=== PATIENT | female | born 1940 | race Caucasian/White ===

== ENCOUNTER 2018-07-28 19:22 | Emergency (ER) | payer OTHER ==
[2018-07-28 19:27] VITALS: BP 149/83; PULSE 86; TEMP 97.8; BMI 18.9
--- NOTE | 2018-07-28 19:27 | PDOC ---
History of Present Illness - General History Source: Patient, Family Exam Limitations: No Limitations - History of Present Illness Initial Comments: A portion of this note was documented by scribe services under my direction. I have reviewed the details of the note, within reason, and agree with the documentation. The case summary and management plan written by me. 07/28/18 20:41 Assessment plan: This is an 77-year-old female brought in by her daughter for evaluation status post fall. Patient had a mechanical trip and fall landing on her face. Patient had a head CT and facial bone CT that were negative for any acute pathology. However patient does have a small chip to her right front tooth as well as her front teeth are loose. Patient otherwise has a small abrasion on her right knee but no bony tenderness. Patient has some mild bony tenderness of her left wrist but x-rays negative for any acute pathology/fracture Family/daughter given copies of the head CT facial bone CT Patient discharged told to follow-up with her primary care doctor and a dentist.. Patient told she can take Tylenol or Motrin as needed for pain <Michael Valverde I - Last Filed: 07/28/18 20:40> - General History Source: Patient, Family Exam Limitations: No Limitations - History of Present Illness Initial Comments: 07/28/18 20:09 The patient is a 77 year old female, accompanied by daughter, with a past medical history of mild cognitive impairment who presents to the ED s/p fall earlier today. As per daughter, the patient was walking when she tripped on the sidewalk and she fell onto her face and head. Patient complains of headache to the right side of her head, pain to her teeth and pain to her left wrist. Denies loss of consciousness. Denies lightheadedness, dizziness or weakness. Denies blurry vision. Denies any other symptoms. PAST MEDICAL HISTORY: mild cognitive impairment PAST SURGICAL HISTORY: no significant history FAMILY HISTORY: no pertinent history SOCIAL HISTORY: Pt lives with family and is employed. MEDICATIONS: reviewed ALLERGIES: As per nursing notes General: No fevers or chills, no weakness, no weight loss HEENT: + teeth pain. No change in vision. No sore throat,. No ear pain CardioVascular: No chest pain or shortness of breath Respiratory:No cough, or wheezing. Gastrointestinal: no nausea, vomiting, diarrhea or constipation, No rectal bleeding Genitourinary: No dysuria, hematuria, or frequency Musculoskeletal: + wrist pain. Neurologic: + headache. No vertigo, dizziness or loss of consciousness Psychiatric: nor depression Skin: No rashes or easy bruising Endocrine: no increased thirst or abnormal weight change Allergic: no skin or latex allergy All other systems reviewed and normal General: Well-nourished well-developed individual, no acute distress HEENT: + contusion on the left forehead with soft tissue tenderness. Tenderness of the axilla with some bleeding of the anterior teeth. Front teeth are loose, right front tooth appears to have shifted. e Neck: Supple, no meningeal signs, no lymphadenopathy Back: + Mild muscular tenderness of the left upper back. Cervical, Lumbar, and Thoracic spine are nontender. Eyes::Pupils equal reactive and round, extraocular motion intact Chest: Nontender to palpation Cardiac: S1-S2 normal, regular rate and rhythm, no murmurs rubs or gallops Respiratory: Lungs clear to auscultation bilateral Abdomen: Soft, nondistended, normal bowel sounds, nontender to palpation diffusely Extremities: + Left wrist tenderness on left wrist with full range of motion, without any deformity, swelling, or ecchymosis.Right knee small abrasion, no bleeding, swelling, ecchymosis or bony tenderness. Warm, dry, no cyanosis, clubbing, or edema Skin: No rashes Neuro: Alert and oriented x3, nonfocal exam, grossly intact, normal gait Psych: Normal mood and affect <Adama Davis - Last Filed: 07/28/18 20:49> - General Chief Complaint: Injury Stated Complaint: HEAD INJURY Time Seen by Provider: 07/28/18 19:26 Past History <Michael Valverde I - Last Filed: 07/28/18 20:40> <Adama Davis - Last Filed: 07/28/18 20:49> - Past Medical History Allergies/Adverse Reactions: Allergies Allergy/AdvReac Type Severity Reaction Status Date / Time No Known Allergies Allergy Verified 07/28/18 19:23 Home Medications: Ambulatory Orders Cholecalciferol (Vitamin D3) [Vitamin D3] unit PO DAILY 07/28/18 Cyanocobalamin [Vitamin B12 -] mcg PO DAILY 07/28/18 *Physical Exam - Vital Signs Last Vital Signs Temp Pulse Resp BP Pulse Ox 97.8 F 86 18 149/83 100 07/28/18 19:22 07/28/18 19:22 07/28/18 19:22 07/28/18 19:22 07/28/18 19:22 <Adama Davis - Last Filed: 07/28/18 20:49> *DC/Admit/Observation/Transfer - Discharge Dispostion Decision to Admit order: No <Michael Valverde I - Last Filed: 07/28/18 20:40> - Attestations Scribe Attestion: 07/28/18 20:09 Documentation prepared by Adama Davis, acting as medical transport specialist for Michael Valverde MD <Adama Davis - Last Filed: 07/28/18 20:49> Diagnosis at time of Disposition: Sprain of left wrist, Abrasion, right knee, initial encounter Fall Qualifiers: Encounter type: initial encounter Qualified Code(s): W19.XXXA - Unspecified fall, initial encounter Chipped tooth Qualifiers: Encounter type: initial encounter Fracture type: closed Qualified Code(s): S02.5XXA - Fracture of tooth (traumatic), initial encounter for closed fracture Contusion of scalp Qualifiers: Encounter type: initial encounter Qualified Code(s): S00.03XA - Contusion of scalp, initial encounter - Discharge Dispostion Disposition: HOME Condition at time of disposition: Stable - Patient Instructions Additional Instructions: Someone should check on you once tonight during the night. You should be arousable to their normal level of arousability for that time of the night. If you are vomiting, have a seizure, or you are unable to be aroused, someone should call 911 and have the you brought to the nearest emergency department. You can take Tylenol as needed for pain. Return to the emergency department immediately with ANY new, persistent or worsening symptoms. Continue any medications as previously prescribed by your physician. You should follow up with your primary doctor as soon as possible regarding today's emergency department visit. . Please make sure your doctor reviews the results of your emergency evaluation. Thank you for coming to the Emergency Department today for your care. It was a pleasure to see you today. Please note that your evaluation is INCOMPLETE until you follow-up with your doctor.
[2018-07-28] MEDS ORDERED: ACETAMINOPHEN 650 MG/20.3 ML ORAL SOLUTION (CUPS) PO ONE (21:08)
[2018-07-28] MEDS ORDERED: ACETAMINOPHEN 650 MG/20.3 ML ORAL SOLUTION (CUPS) ONE (21:10)
== END 2018-07-28 21:14 | disposition home or self-care (01) ==
LOC: FER 19:22
DX: S80.211A Abrasion, right knee, initial encounter (principal); S63.502A Unspecified sprain of left wrist, initial encounter; S00.03XA Contusion of scalp, initial encounter; S02.5XXA Fracture of tooth (traumatic), initial encounter for closed fracture; W18.39XA Other fall on same level, initial encounter; Y93.89 Activity, other specified; Y92.89 Other specified places as the place of occurrence of the external cause; G31.84 Mild cognitive impairment of uncertain or unknown etiology
CPT/HCPCS: 70450-TC; 70486-TC; 73110-TC-LR-FY; 99283-25

== ENCOUNTER 2019-02-02 19:04 | Inpatient (IN) | payer OTHER ==
--- NOTE | 2019-02-02 19:42 | PDOC ---
History of Present Illness - General Chief Complaint: Injury Stated Complaint: FALL Time Seen by Provider: 02/02/19 19:42 Past History - Past Medical History Allergies/Adverse Reactions: Allergies Allergy/AdvReac Type Severity Reaction Status Date / Time No Known Allergies Allergy Verified 07/28/18 19:23 Home Medications: Ambulatory Orders Cholecalciferol (Vitamin D3) [Vitamin D3] unit PO DAILY 07/28/18 Cyanocobalamin [Vitamin B12 -] mcg PO DAILY 07/28/18 COPD: No - Suicide/Smoking/Psychosocial Hx Smoking History: Never smoked Have you smoked in the past 12 months: No Information on smoking cessation initiated: No Hx Alcohol Use: No Drug/Substance Use Hx: No *Physical Exam - Vital Signs Last Vital Signs Temp Pulse Resp BP Pulse Ox 97.9 F 96 H 20 142/70 100 02/02/19 19:28 02/02/19 19:28 02/02/19 19:28 02/02/19 19:28 02/02/19 19:28 *DC/Admit/Observation/Transfer - Referrals Referrals: Ephraim Catherine [Primary Care Provider] - - Patient Instructions - Post Discharge Activity
[2019-02-02] MEDS ORDERED: SODIUM CHLORIDE 0.9% 500 ML INFUS.BAG IV ONE (20:01)
[2019-02-02 20:24] LABS: BASO % 0.2 % (0-2.0); HEMATOCRIT 36.7 % (32.4-45.2); LYMPH % 3.6 % (8-40); MCH 26.7 pg (25.7-33.7); MCHC 32.8 g/dl (32.0-36.0); MEAN CELL VOLUME 81.3 fl (80-96); MEAN PLT VOLUME 7.9 fl (7.5-11.1); MONO % 7.2 % (3.8-10.2); PLATELET COUNT 222 K/MM3 (134-434); RBC 4.51 M/mm3 (3.60-5.2); RDW 13.8 % (11.6-15.6); WHITE BLOOD COUNT 9.2 K/mm3 (4.0-10.0)
[2019-02-02 20:43] LABS: INR 1.04 (0.83-1.09); PROTHROMBIN TIME (PATIENT) 12.3 SEC (9.7-13.0)
[2019-02-02 21:29] LABS: ALK PHOS 57 U/L (45-117); ANION GAP 8 MMOL/L (8-16); BILIRUBIN,TOTAL 0.7 mg/dL (0.2-1); BLOOD UREA NITROGEN 20 mg/dL (7-18); CALCIUM 9.2 mg/dL (8.5-10.1); CHLORIDE 100 mmol/L (98-107); CO2 28 mmol/L (21-32); CREATININE 0.8 mg/dL (0.55-1.3); SGPT/ALT 24 U/L (13-61); SODIUM 136 mmol/L (136-145); TOT PROT 7.4 g/dl (6.4-8.2)
[2019-02-02 21:30] LABS: POTASSIUM 4.8 mmol/L (3.5-5.1); SGOT/AST 37 U/L (15-37)
[2019-02-02] MEDS ORDERED: ACETAMINOPHEN 1000 MG/100 ML VIAL (NON FORMULARY) IVPB ONE (21:30)
[2019-02-02] MEDS ORDERED: morphine CARPU-JECT 2 MG/1 ML DISP.SYRIN IVPUSH ONE (21:31)
[2019-02-02] MEDS ORDERED: ACETAMINOPHEN INJECTION 100 ML IVPB ONE (21:32)
[2019-02-02 21:33] LABS: GLUCOSE,RANDOM 304 mg/dL (74-106)
[2019-02-02] MEDS ORDERED: MORPHINE SULFATE 2 MG/ML VIAL ONE (22:01)
--- NOTE | 2019-02-02 22:14 | HP ---
CHIEF COMPLAINT: Unwitnessed fall PCP: Dorene Ye HISTORY OF PRESENT ILLNESS: History obtained by daughter at bedside (Clemencia Marinelli [phone]) Patient is a 78 year old female with history of mild cognitive impairment ( follows with neurologist at [facility]), diabetes mellitus (currently not on any treatment) presents after an unwitnessed fall. Patient last seen well yesterday evening, walking to neighbor's apartment. Per daughter at bedside, the neighbor noted that patient was walking slower than normal. Today, neighbor was unable to reach the patient, and came over to apartment to find her on the floor. Unknown exacly how long patient was on the floor. Patient was not noted to be fecal or urinary incontinent. Patient was unable to describe the preceding history of the fall. Upon my encounter, patient is awake, alert to person and time. She does not recall that she has had a fall, and does not endorse acute complaints at this time. She appears anxious, and her speech is tangential. ER course was notable for: (1) Right hip radiograph (2) CT head, CT cervical spine (3) Recent Travel: PAST MEDICAL HISTORY: mild cognitive impiarment, diabetes mellitus PAST SURGICAL HISTORY: denies Social History: Smoking: denies Alcohol: denies Drugs: denies Lives in apartment alone. Neighbors check in on her. Patient ambulates without cane, or walker. Family History: Allergies: No Known Allergies Allergy (Verified 07/28/18 19:23) HOME MEDICATIONS: Home Medications Medication Instructions Recorded NK [No Known Home Medication] 02/02/19 REVIEW OF SYSTEMS Unable to obtain. PHYSICAL EXAMINATION Vital Signs - 24 hr 02/02/19 19:28 Temperature 97.9 F Pulse Rate 96 H Respiratory 20 Rate Blood Pressure 142/70 O2 Sat by Pulse 100 Oximetry (%) GENERAL: Awake, alert, and oriented to person, and time, in no acute distress. HEAD: Normocephalic, atraumatic. EYES: Pupils equal, round and reactive to light, extraocular movements intact, sclera anicteric, conjunctiva clear. EARS, NOSE, THROAT: Oropharynx clear without exudates. Moist mucous membranes. NECK: Supple without lymphadenopathy, or JVD. LUNGS: Breath sounds equal, clear to auscultation bilaterally. No wheezes, and no crackles. No accessory muscle use. HEART: Regular rate and rhythm, normal S1 and S2 without murmur, rub or gallop. ABDOMEN: Soft, nondistended, nontender to light and deep palpation x4 quadrants , no rebound tenderness, no guarding. Normoactive bowel sounds x4 quadrants. no hepatosplenomegaly, no masses. MUSCULOSKELETAL: Normal range of motion at all joints. No bony deformities or tenderness. No CVA tenderness. UPPER EXTREMITIES: 2+ radial pulses bilaterally, warm, well-perfused. No cyanosis. No clubbing. No peripheral edema. LOWER EXTREMITIES: 2+ dorsalis pedis pulses bilaterally, warm, well-perfused. No calf tenderness. No peripheral edema. NEUROLOGICAL: Cranial nerves II-XII intact. Sensation intact bilateral upper and lower extremities. Patient freely moves both upper extremities, and left lower extremity, however exhibits pain when attempting to move right lower extremity. PSYCHIATRIC: Cooperative. Anxious appearing. SKIN: Warm, dry, no rashes or lesions noted. Laboratory Results - last 24 hr 02/02/19 02/02/19 02/02/19 20:10 20:10 20:10 WBC 9.2 RBC 4.51 Hgb 12.0 Hct 36.7 MCV 81.3 MCH 26.7 MCHC 32.8 RDW 13.8 Plt Count 222 MPV 7.9 Absolute Neuts (auto) 8.2 H Neutrophils % 89.0 H Lymphocytes % 3.6 L Monocytes % 7.2 Eosinophils % 0.0 Basophils % 0.2 Nucleated RBC % 0 PT with INR 12.30 INR 1.04 Sodium Cancelled Potassium Cancelled Chloride Cancelled Carbon Dioxide Cancelled Anion Gap Cancelled BUN Cancelled Creatinine Cancelled Creat Clearance w eGFR Cancelled Random Glucose Cancelled Calcium Cancelled Total Bilirubin Cancelled AST Cancelled ALT Cancelled Alkaline Phosphatase Cancelled Creatine Kinase Creatine Kinase Index CK-MB (CK-2) Total Protein Cancelled Albumin Cancelled 02/02/19 20:10 WBC RBC Hgb Hct MCV MCH MCHC RDW Plt Count MPV Absolute Neuts (auto) Neutrophils % Lymphocytes % Monocytes % Eosinophils % Basophils % Nucleated RBC % PT with INR INR Sodium 136 Potassium 4.8 Chloride 100 Carbon Dioxide 28 Anion Gap 8 BUN 20 H Creatinine 0.8 Creat Clearance w eGFR 69.55 Random Glucose 304 H* Calcium 9.2 Total Bilirubin 0.7 AST 37 ALT 24 Alkaline Phosphatase 57 Creatine Kinase 545 H Creatine Kinase Index 0.4 CK-MB (CK-2) 2.5 Total Protein 7.4 Albumin 4.0 ASSESSMENT/PLAN: Patient is a 78 year old female with history of mild cognitive impairment ( follows with neurologist at [facility]), diabetes mellitus (currently not on any treatment) presents after an unwitnessed fall. Unwitnessed fall -EKG shows normal sinus rhythm at 99 beats per minute -Troponin 0.02. Will follow. -CPK 545. Will trend -Follow cardiac ECHO -Telemetry monitoring -Fall precautions Right intratrochanteric fracture -Right hip radiograph confirms fracture. Follow official report. -Orthopedic surgery consult (Dr. Flores) -Ofirmev 700mg IVPB Q6H PRN for pain 1-5 (dosed with pharmacy recommendations) -Morphine 2mg IV push Q4 hours PRN for breakthrough pain -Patient's daughter, and power of assistant city attorney, Clemencia Marinelli requests to be contacted for consent prior to any surgical intervention ([phone]). Diabetes mellitus -Patient has not been taking any medications recently. Daughter endorses recent blood work with primary care physician was normal. -Insulin sliding scale Q6 hours, minimal scale as patient is insulin naive; risk of hypoglycemia. -Fingerstick blood glucose monitoring Q6 hours Mild cognitive impairment -Patients daughter endorses extensive workup with MRI. Will need to obtain studies for further history. FEN -IV normal saline at 75mL/ hour -Follow CMP -NPO pending orthopedic surgery evaluation Prophylaxis -Heparin 5000u subq TID. Holding after midnight in anticipation of orthopedic surgery evaluation. Disposition -Admit to Telemetry floor. Visit type - Emergency Visit Emergency Visit: Yes ED Registration Date: 02/02/19 Care time: The patient presented to the Emergency Department on the above date and was hospitalized for further evaluation of their emergent condition. - New Patient This patient is new to me today: Yes Date on this admission: 02/03/19 - Critical Care Critical Care patient: No
[2019-02-02 22:31] LABS: URINE APPEARANCE CLEAR; URINE BILIRUBIN NEGATIVE (NEGATIVE); URINE COLOR YELLOW; URINE GLUCOSE (UA) 3+ (NEGATIVE); URINE KETONE NEGATIVE (NEGATIVE); URINE LEUK ESTERASE NEGATIVE (NEGATIVE); URINE NITRITE NEGATIVE (NEGATIVE); URINE PROTEIN NEGATIVE (NEGATIVE); URINE UROBILINOGEN 0.2 mg/dL (0.2-1.0)
[2019-02-02] MEDS ORDERED: morphine SULFATE 4 MG/ML VIAL IVPUSH PRN (22:44)
[2019-02-02] MEDS ORDERED: ACETAMINOPHEN 1000 MG/100 ML VIAL (NON FORMULARY) IVPB PRN ×2 (22:49→23:31)
[2019-02-02] MEDS: HEPARIN NA (PORCINE) 5,000 UNITS/ML 1ML VIAL SQ SCH (23:03)
[2019-02-02] MEDS ORDERED: SODIUM CHLORIDE 1,000 ML IV SCH (23:45)
--- NOTE | 2019-02-02 23:48 | PN ---
Teaching Attending Note Name of Resident: Reece Rivas ATTENDING PHYSICIAN STATEMENT I saw and evaluated the patient. I reviewed the resident's note and discussed the case with the resident. I agree with the resident's findings and plan as documented. SUBJECTIVE: Seen and examined; please refer to resident note for further historical information. Briefly, this is a 78 y/o female who is on no Rx meds with underlying ocnvern of developing cognitive impairment who presents to the ER after a fall with hip pain. Fall was unwitnessed and she was on the ground for an unknown period of time. Her neighbor found her after not seeing her all day. She is a poor historian but offers no other complaints. Unknown if she syncopized, etc. The patient was found to have a R-sided fx and will require orthopedic intervention; will be admitted to the medicine service 10 sys ROS done and negative aside from HPI PMH, PSH, FH, SH reviewed Home Medications Medication Instructions Recorded NK [No Known Home Medication] 02/02/19 OBJECTIVE: VS, labs, imaging reviewed NAD, AAO, resting comfortably in bed NC AT EOMI PERRLA RRR s1/2 no mgr Lungs CTAB, w/ sym exp NT ND +BS CN2-12 wnl, no fnd, pleasantly demented Normal mood, appropriate behavior Imaging reviewed; R-IC hip fx EKG reviewed; no high degree AVB, etc. ASSESSMENT AND PLAN: Patient presents with a fall of unknown etiology found to have a R-IC hip fx; Dr. Flores to see. 1) Hip Fx -Appreciate expert opinion with orthopedics; will defer ultimate tx to them along with further diagnostics. -Pain control and bowel regimine -Daughter is HCP for consent, etc. 2) Fall -Unknown if syncopal and on ground for unknown time -Trend down the CK -In case syncope, monitor on tele for 24 hours and check an echo for any structural abnormalities 3) Cognative impairment -Follows with neurology at [facility] -Monitor for 4) Hx DM (not on home meds) with hyperglycemia -Monitor fsg and add iss if needed Full Code
[2019-02-03] MEDS: INSULIN SLIDING SCALE (NOVOLOG) 1 VIAL SQ SCH ×4 (00:44→17:39)
[2019-02-03 02:45] VITALS: BMI 21.6
[2019-02-03 04:58] LABS: HEMOGLOBIN 10.5 GM/dL (10.7-15.3); RDW 13.7 % (11.6-15.6)
[2019-02-03 05:03] LABS: HEMATOCRIT 31.5 % (32.4-45.2); MCHC 33.4 g/dl (32.0-36.0); MEAN CELL VOLUME 80.7 fl (80-96); MEAN PLT VOLUME 8.1 fl (7.5-11.1); PLATELET COUNT 202 K/MM3 (134-434); WHITE BLOOD COUNT 7.7 K/mm3 (4.0-10.0)
[2019-02-03 05:43] LABS: ANION GAP 1 MMOL/L (8-16); BLOOD UREA NITROGEN 11 mg/dL (7-18); CALCIUM 8.6 mg/dL (8.5-10.1); CHLORIDE 110 mmol/L (98-107); CO2 28 mmol/L (21-32); CREATININE 0.5 mg/dL (0.55-1.3); GLUCOSE,RANDOM 98 mg/dL (74-106); MAGNESIUM 2.3 mg/dL (1.8-2.4); PHOSPHOROUS 2.9 mg/dL (2.5-4.9); POTASSIUM 3.8 mmol/L (3.5-5.1); SODIUM 139 mmol/L (136-145)
[2019-02-03 05:44] LABS: ALBUMIN 3.1 g/dl (3.4-5.0); ALK PHOS 44 U/L (45-117); SGOT/AST 23 U/L (15-37); SGPT/ALT 17 U/L (13-61)
--- NOTE | 2019-02-03 11:24 | PN ---
Progress Note (short form) - Note Progress Note: Pt seen and examined. I met with family members including her daughter, who is her health care proxy. She is a 78 year old female patient with early onset dementia, otherwise healthy, who fell some time on night. Likely she was lying on the floor overnight, was discovered on tuesday, brought in by ambulance to ER last night. Her blood glucose was over 300. She has a UTI. Otherwise stable. All of her physicians including her neurologist, GP, and director of outside sales (why?), are at [facility]. AVSS PE Pt in NAD, is comfortable, not in pain when stationary. RLE is grossly NVI Is held in a slightly shortened and externally rotated position. + pain at the hip and thigh with logrolling, or axial load Xrays Show a displaced right femoral neck fracture Imp 78 year old female with an acute right displaced femoral neck fracture Rec Right hip hemiarthroplasty surgery, pending medical clearance, treatment of UTI, normalization of blood glucose After lengthy conversation with the daughter she will be transferred to [facility], at the daughter's request. Nursing microfilm duplicating unit supervisor brought into the conversation. All questions and concerns addressed. We discussed the risks, complications, benefits of surgery, etc
[2019-02-03] MEDS ORDERED: ACETAMINOPHEN 325 MG TABLET (FP) PO PRN (13:37)
--- NOTE | 2019-02-03 13:37 | PN ---
Progress Note (short form) - Note Progress Note: asymptomatic. denies CP, SOB, fever, chills, N/V/C/D Current Medications Generic Name Dose Route Start Last Admin Trade Name Mary PRN Reason Stop Dose Admin Acetaminophen 700 mg 02/02/19 23:31 Ofirmev Injection - IVPB Q6H PRN PAIN LEVEL 1-5 Heparin Sodium (Porcine) 5,000 unit 02/02/19 23:00 02/02/19 23:03 Heparin - SQ 5,000 unit TID ADALGISA Administration Sodium Chloride 1,000 mls @ 75 mls/hr 02/02/19 23:45 02/03/19 00:44 Normal Saline - IV 75 mls/hr ASDIR ADALGISA Administration Insulin Aspart 1 vial 02/02/19 23:45 02/03/19 11:39 Novolog Vial Sliding Scale - SQ Not Given Q6HPO [facility] Protocol Morphine Sulfate 2 mg 02/02/19 22:44 Morphine Sulfate IVPUSH Q6H PRN PAIN LEVEL 7 - 10 Last Vital Signs Temp Pulse Resp BP Pulse Ox 97.6 F 74 20 113/59 L 98 02/03/19 10:00 02/03/19 10:00 02/03/19 10:00 02/03/19 10:00 02/03/19 10:00 General NAD A&O to self only CV S1 S2 RRR no murmur/rub/gallop Lungs CTA B/L no wheezing/rales/rhonchi Abdomen soft NT/ND Extremities RLE short and externally rotated. point tenderness along the trochanter CBCD WBC 7.7 K/mm3 (4.0-10.0) 02/03/19 04:05 RBC 3.90 M/mm3 (3.60-5.2) 02/03/19 04:05 Hgb 10.5 GM/dL (10.7-15.3) L 02/03/19 04:05 Hct 31.5 % (32.4-45.2) L 02/03/19 04:05 MCV 80.7 fl (80-96) 02/03/19 04:05 MCHC 33.4 g/dl (32.0-36.0) 02/03/19 04:05 RDW 13.7 % (11.6-15.6) 02/03/19 04:05 Plt Count 202 K/MM3 (134-434) 02/03/19 04:05 MPV 8.1 fl (7.5-11.1) 02/03/19 04:05 CMP Sodium 139 mmol/L (136-145) 02/03/19 04:05 Potassium 3.8 mmol/L (3.5-5.1) 02/03/19 04:05 Chloride 110 mmol/L (98-107) H 02/03/19 04:05 Carbon Dioxide 28 mmol/L (21-32) 02/03/19 04:05 Anion Gap 1 MMOL/L (8-16) L 02/03/19 04:05 BUN 11 mg/dL (7-18) 02/03/19 04:05 Creatinine 0.5 mg/dL (0.55-1.3) L 02/03/19 04:05 Creat Clearance w eGFR 119.64 (>60) 02/03/19 04:05 Calcium 8.6 mg/dL (8.5-10.1) 02/03/19 04:05 Total Bilirubin 1.0 mg/dL (0.2-1) 02/03/19 04:05 AST 23 U/L (15-37) 02/03/19 04:05 ALT 17 U/L (13-61) 02/03/19 04:05 Alkaline Phosphatase 44 U/L (45-117) L 02/03/19 04:05 Total Protein 6.0 g/dl (6.4-8.2) L 02/03/19 04:05 Albumin 3.1 g/dl (3.4-5.0) L 02/03/19 04:05 A/P 78yo F wtih PMH DM which is diet controlled and dementia presented after unwitnessed fall and found to have a R femoral neck fracture 1. R femoral neck fracture- evaluated by Ortho and recommending hemiarthroplasty however family wants her to be transferred to [facility] for surgery where all her doctors are located. daughter understands risks for worsening morbidity with surgery being delayed. stark in place. pain control 2. Urinary retention- UA negative for infection. Maintain stark at present time , can start bladder training after surgery 3. Normocytic anemia- likely dilutional component. no signs of bleeding. monitor Hgb. no indication for transfusion 4. unwitnessed fall- pt does not recall falling. possible had syncopal event. no murmurs appreciated to suggest structural disease. on cardiac monitoring to r /o arrhythmia. 5. DM- diet controlled. does not take medications at home. on iss and bgm 6. dementia- at baseline per daughter present at bedside 7. DVT ppx- hep sq 8. spoke with daughter and her present at bedside. expressed desire to have surgery performed at [facility] due to her primary physician being located there. Dr Hoyt who is covering physician is likely to accept based on him having an orthopedic willing to take her case going forward. will await for confirmation for acceptance. Daughter aware she will be responsible for costs for having her mother transported
--- NOTE | 2019-02-03 14:11 | EKG ---
Test Reason : Blood Pressure : / mmHG Vent. Rate : 099 BPM Atrial Rate : 099 BPM P-R Int : 120 ms QRS Dur : 076 ms QT Int : 356 ms P-R-T Axes : 064 045 032 degrees QTc Int : 456 ms NORMAL SINUS RHYTHM NONSPECIFIC ST ABNORMALITY ABNORMAL ECG NO PREVIOUS ECGS AVAILABLE Confirmed by MD GHAZAL, OSCAR ([id number]) on 02/03/2019 2:11:39 PM Referred By: Confirmed By:OSCAR HARMAN MD
[2019-02-03 14:40] VITALS: BP 95/43; PULSE 93; TEMP 98.4
[2019-02-03] MEDS: HEPARIN NA (PORCINE) 5,000 UNITS/ML 1ML VIAL SQ SCH (16:10)
--- NOTE | 2019-02-04 07:48 | DS ---
Physical Exam: HOSPITAL COURSE: Date of Admission:02/02/19 Date of Discharge: 02/03/19 Admitting Diagnosis: Displaced R hip fracture Pre hospital course 78 year old female with history of mild cognitive impairment (follows with neurologist at [facility]), diabetes mellitus (currently not on any treatment) presents after an unwitnessed fall. Patient last seen well yesterday evening, walking to neighbor's apartment. Per daughter at bedside, the neighbor noted that patient was walking slower than normal. Today, neighbor was unable to reach the patient, and came over to apartment to find her on the floor. Unknown exacly how long patient was on the floor. Patient was not noted to be fecal or urinary incontinent. Patient was unable to describe the preceding history of the fall. Upon my encounter, patient is awake, alert to person and time. She does not recall that she has had a fall, and does not endorse acute complaints at this time. She appears anxious, and her speech is tangential. SUbsequent hospital course admitted to [facility] for cardiac monitoring to r/o arrhythmia as cause to unwitnessed fall. imaging done all negative except for R hip fracture. ortho evaluated. daughter wanted transfer to [facility] due to personal preferences. Accepted by Dr Hoyt however case needed to be reviewed case management prior to being allowed to be moved which would be unable to be done until tuesday. Daughter signed her out AMA to bring her over to [facility]. counselled on risks assoc with leaving, she verbalized understanding and acknowledgement of risks Minutes to complete discharge: 40 Discharge Summary Reason For Visit: CLOSED FRACTURE OF HIP, FALL Condition: Guarded - Instructions Disposition: AGAINST MEDICAL ADVICE - Home Medications Comprehensive Discharge Medication List: Ambulatory Orders NK [No Known Home Medication] 02/02/19 This patient is new to me today: Yes Date on this admission: 02/04/19 Emergency Visit: Yes ED Registration Date: 02/02/19 Care time: The patient presented to the Emergency Department on the above date and was hospitalized for further evaluation of their emergent condition. Critical Care patient: No - Discharge Referral Referred to [facility] Med P.C.: No
== END 2019-02-03 20:25 | disposition left against medical advice (07) | DRG 536 ==
LOC: JER 19:04 → JERBED 21:34 → J4S 02-03 01:10
PROVIDERS: ADMIT Internal Medicine; ATTEND Internal Medicine
DX: S72.141A Displaced intertrochanteric fracture of right femur, initial encounter for closed fracture (principal); W18.39XA Other fall on same level, initial encounter; Y92.098 Other place in other non-institutional residence as the place of occurrence of the external cause; G31.84 Mild cognitive impairment of uncertain or unknown etiology; E11.65 Type 2 diabetes mellitus with hyperglycemia; R33.9 Retention of urine, unspecified; D64.9 Anemia, unspecified; F03.90 Unspecified dementia, unspecified severity, without behavioral disturbance, psychotic disturbance, mood disturbance, and anxiety
CPT/HCPCS: 36415; 70450-TC; 71045-TC-FY; 72125-TC; 73523-TC-FY; 80053; 81003; 82550; 82553; 82962; 83735; 84100; 84484; 85025; 85027; 85610; 86850; 86900; 86901; 87086; 93005; 93010; 99283-25; J0131; J1644; J7030